=== PATIENT | male | born 1975 | race Caucasian/White ===

== ENCOUNTER 2023-07-20 02:31 | Emergency (ER) | payer SELFPAY ==
[~2023-07-20] VITALS: Ht 182.9 cm; Wt 81.8 kg
[2023-07-20] MEDS ORDERED: bacitracin 15gm ointment TP ONE (02:45)
[2023-07-20 03:06] VITALS: BP 144/99; PULSE 90; RESP 20; TEMP 98; O2SAT 98
== END 2023-07-20 03:09 ==
LOC: ER 02:33
DX: S01.311A Laceration without foreign body of right ear, initial encounter (principal); V89.2XXA Person injured in unspecified motor-vehicle accident, traffic, initial encounter; Y93.89 Activity, other specified; Y92.89 Other specified places as the place of occurrence of the external cause; Y99.8 Other external cause status
CPT/HCPCS: 99282; 99283